=== PATIENT | male | born 1975 | race Caucasian/White ===

== ENCOUNTER 2017-03-17 16:14 | Emergency (ER) | payer MEDICAID ==
[2017-03-17 18:08] LABS: AMPHETAMINE QUAL UR NONE DETECTED (NEG <=1000)
[2017-03-17 18:28] VITALS: BP 135/62
== END 2017-03-17 18:28 | disposition home or self-care (01) ==
LOC: ED 16:14
PROVIDERS: Emergency Medicine
DX: R07.89 Other chest pain (principal)
CPT/HCPCS: Q0092